=== PATIENT | female | born 1965 | race Caucasian/White ===

== ENCOUNTER → 2023-07-10 13:04 | Outpatient (REF) | payer BC, SELFPAY | LOC: WDC 13:04 | PROVIDERS: ATTENDING PHYSICIAN Physician Assistant Medical | DX: Z12.31 Encounter for screening mammogram for malignant neoplasm of breast (principal) | CPT/HCPCS: 77063; 77067 ==

== ENCOUNTER → 2023-08-28 06:29 | Day surgery (SDC) | payer BC, SELFPAY | LOC: GI 06:29 | PROVIDERS: ATTENDING PHYSICIAN Internal Medicine Gastroenterology; FAMILY PHYSICIAN Physician Assistant Medical | DX: Z12.11 Encounter for screening for malignant neoplasm of colon (principal); R19.5 Other fecal abnormalities; K64.0 First degree hemorrhoids; K63.89 Other specified diseases of intestine; D12.2 Benign neoplasm of ascending colon; D12.3 Benign neoplasm of transverse colon | CPT/HCPCS: 45385; 45381; 45380; 88305 ==

== ENCOUNTER → 2023-12-10 06:28 | Day surgery (SDC) | payer BC, SELFPAY ==
[2023-12-10] VITALS (7 sets, daily range): BP systolic 89–125; BP diastolic 56–84; BMI 19.7
== END ==
LOC: GI 06:28
PROVIDERS: ATTENDING PHYSICIAN Internal Medicine Gastroenterology
DX: D12.2 Benign neoplasm of ascending colon (principal); K64.0 First degree hemorrhoids; Z98.890 Other specified postprocedural states
CPT/HCPCS: 45385; 88305

== ENCOUNTER → 2024-07-13 12:42 | Outpatient (REF) | payer BC, SELFPAY | LOC: WDC 12:42 | PROVIDERS: ATTENDING PHYSICIAN Physician Assistant Medical | DX: Z12.31 Encounter for screening mammogram for malignant neoplasm of breast (principal) | CPT/HCPCS: 77063; 77067 ==

== ENCOUNTER 2024-12-29 06:33 | Day surgery (SDC) | payer BC, SELFPAY | END 2024-12-29 11:25 | disposition home or self-care (01) | LOC: GI 06:33 | PROVIDERS: ATTENDING PHYSICIAN Internal Medicine Gastroenterology | DX: Z12.11 Encounter for screening for malignant neoplasm of colon (principal); K64.8 Other hemorrhoids; K63.89 Other specified diseases of intestine; D12.3 Benign neoplasm of transverse colon; D12.0 Benign neoplasm of cecum; K63.5 Polyp of colon; Z86.0100 Personal history of colon polyps, unspecified | CPT/HCPCS: 45385; 45380; 88305 ==

== ENCOUNTER 2025-01-02 09:51 | Emergency (ER) | payer BC, SELFPAY ==
[2025-01-02 09:59] VITALS: BP 114/69
[2025-01-02 11:19] VITALS: BMI 21.0
--- NOTE | 2025-01-02 11:21 | ED.GENMED ---
History of Present Illness
<Nelia Mcmillan DO, Resident - Last Filed: 01/02/25 13:35>
General
Chief Complaint: Cardiac Symptoms
Source: patient and significant other
Exam Limitations: none
Time Seen by Provider: 01/02/25 11:05
Nursing documentation reviewed up to this point in time: agreed with
History of Present Illness
History of Present Illness:
Patient is a 59-year-old female with no past medical history now presenting with chest heaviness, shortness of breath and paresthesias of bilateral hands. Patient had a colonoscopy on Saturday. Since the colonoscopy patient has had an ache in the
left side of her chest under her left breast. Patient feels like the pain radiates to her ribs and across her chest. Patient woke up this morning and was experiencing a new chest heaviness and tightness in the center of her chest. Patient also
had shortness of breath this morning. Since Saturday patient has been experiencing occasional bilateral upper extremity paresthesias. Patient has no history of neck injury or trauma.
Review of Systems
<Nelia Mcmillan DO, Resident - Last Filed: 01/02/25 13:35>
Review of Systems
Allergies reviewed?: Yes
All Other Systems: ROS reviewed and negative except as documented in HPI and ROS
Constitutional: Reports no symptoms
EENT: Reports no symptoms
Respiratory: Reports trouble breathing (SOB this morning when she woke up)
Cardiac: Reports chest pain (Left-sided ache radiating towards center of chest, now described as chest tightness)
ABD/GI: Reports no symptoms
: Reports no symptoms
Musculoskeletal: Reports no symptoms
Skin: Reports no symptoms
Neurological: Reports no symptoms
Hematologic/Lymphatic: Reports no symptoms
Psychiatric: Reports no symptoms
Phy Exam
<Nelia Mcmillan DO, Resident - Last Filed: 01/02/25 13:35>
General Physical Exam
General Presentation: well appearing and no apparent distress
General age: appears stated age
General Skin: warm and dry
General Habitus: normal
General Mental: alert
Cardiovascular Exam
Cardiovascular Exam: regular rate/rhythm
Heart Sounds: normal
Pulmonary Exam
Pulmonary Exam: lungs clear and no respiratory distress
Gastrointestinal Exam
Gastrointestinal Exam: normal bowel sounds, non tender and soft
Neurological Exam
Neurological Exam: alert and oriented x3
Musculoskeletal Exam
Musculoskeletal Exam: full ROM
Skin Exam
Skin Exam: normal color and warm/dry
Psychiatric Exam
Psychiatric Exam: normal mood/affect
Course
<Nelia Mcmillan DO, Resident - Last Filed: 01/02/25 13:35>
Orders/Labs/Results
Orders:
Orders
01/02/25 10:02
Electrocardiogram (*1) Urgent
Reason for Study: Shortness of Breath
EKG- Treatment ONCE
01/02/25 11:18
CR Chest - 2 Views Urgent
Comment:
Reason For Exam: L pain
01/02/25 11:24
Complete Blood Count/With Diff Urgent
Comprehensive Metabolic Panel Urgent
D-Dimer Urgent
Troponin I Urgent
Abnormal Lab Results
01/02/25
11:24
WBC 4.4 L 10^3/uL
(4.8-10.8)
Absolute Lymphs (auto) 1.1 L 10^3/uL
(1.2-3.4)
Creatinine 0.5 L mg/dL
(0.6-1.0)
Total Protein 8.3 H g/dl
(6.3-8.2)
01/02/25 11:24
01/02/25 11:24
Vital Signs
Temp: 98.4 F
Initial and Last Documented VS:
Initial Vital Signs
Pulse Resp BP Pulse Ox
81 18 114/69 100
01/02/25 09:59 01/02/25 09:59 01/02/25 09:59 01/02/25 09:59
Last Documented Vital Signs
Temp Pulse Resp BP Pulse Ox
98.4 F 75 12 115/60 99
01/02/25 13:23 01/02/25 13:19 01/02/25 13:19 01/02/25 11:28 01/02/25 13:19
<Casey Sher, DO - Last Filed: 01/02/25 11:32>
Orders/Labs/Results
Orders:
Orders
01/02/25 10:02
Electrocardiogram (*1) Urgent
Reason for Study: Shortness of Breath
EKG- Treatment ONCE
01/02/25 11:18
CR Chest - 2 Views Urgent
Comment:
Reason For Exam: L pain
01/02/25 11:24
Complete Blood Count/With Diff Urgent
Comprehensive Metabolic Panel Urgent
D-Dimer Urgent
Troponin I Urgent
Abnormal Lab Results
01/02/25
11:24
WBC 4.4 L 10^3/uL
(4.8-10.8)
Absolute Lymphs (auto) 1.1 L 10^3/uL
(1.2-3.4)
Creatinine 0.5 L mg/dL
(0.6-1.0)
Total Protein 8.3 H g/dl
(6.3-8.2)
01/02/25 11:24
01/02/25 11:24
Vital Signs
Initial and Last Documented VS:
Initial Vital Signs
Pulse Resp BP Pulse Ox
81 18 114/69 100
01/02/25 09:59 01/02/25 09:59 01/02/25 09:59 01/02/25 09:59
Last Documented Vital Signs
Temp Pulse Resp BP Pulse Ox
98.4 F 75 12 115/60 99
01/02/25 13:23 01/02/25 13:19 01/02/25 13:19 01/02/25 11:28 01/02/25 13:19
<Nelia Mcmillan DO, Resident - Last Filed: 01/02/25 13:35>
MDM/Problems Addressed
Differential Diagnosis Includes:
ACS, PE, anxiety, GERD
MDM/Problems Addressed:
Patient's lab work including D-dimer and troponin are unremarkable. Patient's chest x-ray showed no evidence of active cardiopulmonary disease. Discussed with patient use of urwy-icl-kgjjfat omeprazole (Prilosec) in the event that this chest
discomfort is caused by GERD. Patient will follow-up with Dr. Lamas for chest pain.
<Nelia Mcmillan DO, Resident - Last Filed: 01/02/25 13:35>
*Radiology
Radiology exam reviewed: radiology read reviewed (No evidence of active cardiopulmonary disease.)
*Pulse Oximetry
SaO2: 100
Oxygen Mode of Delivery: Room air
Patient hypoxic: no
*EKG
Interpreted by ED Provider?: Yes
EKG Intrepretation Date: 01/02/25
Interpretation: normal
*Critical Care Note
Total Time (30-74mins, 75-104mins- exclusive of procedures): Not Applicable
Data Reviewed
Review of Other/Old Records Reveals: Records
Source: records (Reviewed colonoscopy report from 12/29/2024)
ED Attending Note
<Nelia Mcmillan DO, Resident - Last Filed: 01/02/25 13:35>
-
Portions of this chart may have been created with voice recognition software.� Occasional wrong word or��sound alike� substitutions may have occurred due to the inherent limitations of voice recognition software.
<Casey Riospadmini, DO - Last Filed: 01/02/25 11:32>
ED Attending Note
Patient seen and examined by attending physician: Yes
I performed a history and physical exam of patient and discussed management with resident, I reviewed resident's note and agree with documented findings and plan of care.: Yes
ED Attending Note:
I evaluated the patient at bedside. The patient started having symptoms the evening on the same day of her colonoscopy. She initially had some vague left-sided symptoms but then this morning over 3 hours ago, started having a vague pressure
sensation that is spontaneously improving. She reports bilateral hand paresthesias but also admits to anxiety. I suspect the paresthesias are related to anxiety/hyperventilation but will also check labs. She has an unremarkable EKG with a sinus
rhythm, ventricular rate [address] abnormality
Discharge Plan
Departure
Patient Disposition: Home (Routine Discharge)
Date of Disposition: 01/02/25
Time of Disposition: 13:25
Patient with high blood pressure during this ER visit?: No
Discharge Problem:
Chest pain
Instructions: Chest Pain CBC Follow Up
Referrals:
Jessica Palacio PA [Family Provider, Family Practice]
Jose D Lamas MD [Active, Cardiology]
Activity Restrictions/Additional Instructions:
Recommend starting uswb-cdy-wczefrm omeprazole (Prilosec) for 2 weeks for upper GI discomfort. If no relief, can add fast-acting icat-nkt-vazxysk medications like Pepcid or Maalox. Please make an appointment for chest pain follow-up with
[facility].
Interventions
Interventions:
*Risk Screen - Suicide Last Done: 01/02/25 09:59
*General Assessment Last Done: 01/02/25 09:59
*Neglect/Abuse Screening Last Done: 01/02/25 09:59
*ED- Fall Risk Assessment Last Done: 01/02/25 11:10
*ED COVID-19 Vaccine History Last Done: 01/02/25 11:10
ED- Pulmonary Assessment Last Done: 01/02/25 11:19
ED- Cardiac Assessment Last Done: 01/02/25 11:19
Discharge Date and Time
Print Language: SCOTTISH
[2025-01-02 11:28] VITALS: BP 115/60
[2025-01-02 11:38] LABS: Hematocrit 38.3 % (37.0-47.0); Hemoglobin 13.2 g/dL (12.0-16.0); Mean Corp Hgb Conc. 34.5 g/dL (33.0-37.0); Mean Corpuscular Volume 82.9 fL (81.0-99.0); Nucleated Red Blood Cells % 0 %; Platelet Count 196 10^3/uL (130-400); Red Cell Dist. Width 12.1 % (11.5-14.5)
[2025-01-02 12:05] LABS: ALT (SGPT) 15 U/L (0-35); Albumin 4.5 g/dl (3.5-5.0); Alkaline Phosphatase 56 U/L (38-126); Calcium 9.6 mg/dl (8.4-10.2); Carbon Dioxide 28 mmol/L (22-30); Chloride 106 mmol/L (98-107); Estimated Creatinine Clearance 81 ml/min; Potassium 4.5 mmol/L (3.5-5.1); Sodium 140 mmol/L (135-145); Total Protein 8.3 g/dl (6.3-8.2); eGFR > 60.00
[2025-01-02 12:14] LABS: AST (SGOT) 23 U/L (14-36); Blood Urea Nitrogen 8 mg/dl (7-17); Glucose 90 mg/dl (70-99)
[2025-01-02 12:18] LABS: Troponin I < 0.012 ng/ml
[2025-01-02 12:19] LABS: D-Dimer < 0.27 ug/mlFEU (0.00-0.50)
== END 2025-01-02 13:35 | disposition home or self-care (01) ==
LOC: EMR 09:51
PROVIDERS: EMERGENCY PHYSICIAN Emergency Medicine; FAMILY PHYSICIAN Physician Assistant Medical
DX: R07.89 Other chest pain (principal)
CPT/HCPCS: 99283; 71046; 80053; 84484; 85025; 85379; 93005